=== PATIENT | female | born 1950 | race Caucasian/White ===

== ENCOUNTER → 2016-06-20 | Day surgery (SDC) | payer OTHER, MEDICARE ==
[~2016-06-20] VITALS: Ht 162.6 cm; Wt 77.1 kg
--- NOTE | 2016-06-20 13:51 | Operative Report ---
Operative/Inv Procedure Report Surgery Date: 06/20/16 Name of Procedure: D&C hysteroscopy cervical polypectomy Pre-Operative Diagnosis: Postmenopausal bleeding Post-Operative Diagnosis: Same Estimated Blood Loss: less than 50ml Surgeon/Gold Marker: MAMADOU SUAZO MD Anesthesia: local monitored anesthesi Operative/Procedure Note Note: Procedure note patient was taken the operating room placed prone position after adequate anesthesia patient placed in dorsolithotomy position the vagina from dorsal fashion bladder was catheterized examination anesthesia performed at this point a single-tooth tenaculum was placed on the Intralipid cervix gentle downward traction performed cervix is dilated 29 Hegar to left insertion hysteroscope scope was inserted atraumatically into the cervix under gas is scope was removed at this point a Annie was placed base of the pedicle on the cervical polyp and the mass was removed with a Bovie a 3-0 suture figure-of- eight was placed at the base of the pedicle on hemostasis was apparent on at this point sharp curettage and cervical lining performed sharp curettage endometrial lining performed 2 specimen sent to pathology advancements removed from the vagina hemostasis was apparent patient was returned spine position she was awakened from anesthesia and transferred recovery room awake alert with counts correct Findings: Normal size uterus no adnexal masses a half a centimeter mass on the pedicle at the cervix
== END ==
LOC: STS 06-13 07:00
DX: N95.0 Postmenopausal bleeding (principal); N84.1 Polyp of cervix uteri; J45.909 Unspecified asthma, uncomplicated
CPT/HCPCS: 88305; J0131; J2250

== ENCOUNTER → 2017-07-17 | Day surgery (SDC) | payer OTHER, MEDICARE ==
[~2017-07-17] VITALS: Ht 160 cm; Wt 77.1 kg
== END ==
LOC: STS 03:20
DX: N95.0 Postmenopausal bleeding (principal); N84.1 Polyp of cervix uteri
CPT/HCPCS: 88305; C9399; J0131; J2250